=== PATIENT | male | born 1955 | race Caucasian/White ===

== ENCOUNTER 2021-01-01 10:02 | Inpatient (IN) ==
[2021-01-01 10:47] LABS: Basophils % 0.2 %; Eosinophils # 0.1 K/mcL (0.0-0.6); Eosinophils % 0.5 %; Hematocrit 47.6 % (37.5-50.1); Hemoglobin 17.1 g/dL (12.9-16.9); Immature Granulocytes % 0.3 % (0-4); Lymphocytes # 0.7 K/mcL (0.6-4.6); Lymphocytes % 5.7 %; Mean Corpuscular HGB Conc 35.9 g/dL (31.6-35.5); Mean Corpuscular Hemoglobin 33.8 pg (28.0-33.3); Mean Corpuscular Volume 94.1 fL (83.0-100.0); Mean Platelet Volume 9.5 fL (9.4-12.4); Monocytes % 8.6 %; Neutrophils # 10.3 K/mcL (1.6-8.9); Platelet Count 223 K/mcL (140-400); Red Blood Count 5.06 M/mcL (4.19-5.50); Red Cell Distribution Width 11.9 % (11.5-14.5); Segmented Neutrophils % 84.7 %; White Blood Count 12.2 K/mcL (4.3-11.1)
[2021-01-01 11:08] LABS: Alanine Aminotransferase 13 Units/L (7-52); Albumin 4.4 g/dL (3.5-5.7); Albumin/Globulin Ratio 1.5 (1.1-2.2); Alkaline Phosphatase 61 Units/L (34-104); Amylase 32 Units/L (29-103); Aspartate Amino Transferase 17 Units/L (13-39); BUN/Creatinine Ratio 20 (6-26); Bilirubin,Direct 0.5 mg/dL (0.0-0.2); Bilirubin,Indirect 2.7 mg/dL (0.0-1.0); Bilirubin,Total 3.2 mg/dL (0.3-1.0); Blood Urea Nitrogen 19 mg/dL (8-23); Calcium 10.2 mg/dL (8.6-10.3); Carbon Dioxide 28 mEq/L (23-29); Chloride 92 mEq/L (98-107); Globulin 2.9 g/dL (2.4-3.5); Glucose 116 mg/dL (70-105); Lipase 12 Units/L (11-82); Osmolality,Calculated 275 (280-300); Potassium 3.6 mEq/L (3.5-5.1); Sodium 131 mEq/L (136-145); Total Protein 7.3 g/dL (6.4-8.9); eGFR For African Americans > 60 (> 60); eGFR For Non-African Americans > 60 (> 60)
[2021-01-01] MEDS ORDERED: Ringers Solution, Lactated 1,000 ML IVC ONE (11:12)
[2021-01-01] MEDS ORDERED: Benzocaine 20% 12 APPL GEL..GRAM. MM ONE ×2 (11:51→18:14)
[2021-01-01] MEDS ORDERED: *HR* LORazepam 2 MG/ML VIAL IVP ONE (11:52)
[2021-01-01] MEDS ORDERED: Ondansetron 4 MG/2 ML VIAL IVP PRN ×2 (12:33→18:14)
[2021-01-01] MEDS ORDERED: Naloxone 0.4 MG/ML INJ IVP PRN ×2 (12:33→18:14)
[2021-01-01] MEDS ORDERED: 0.9 % Sodium Chloride 2,000 ML IVC SCH ×2 (12:45→18:14)
[2021-01-01] MEDS ORDERED: D5% in Water 1,000 ML IVC PRN ×2 (12:57→18:14)
[2021-01-01] MEDS ORDERED: Dextrose Gel 15 GM/37.5 ML TUBE PO PRN ×4 (12:57→18:14)
[2021-01-01] MEDS ORDERED: *HR* Dextrose 50 % in Water (Syg) 50 ML SYRINGE IVP PRN ×2 (12:57→18:14)
[2021-01-01] MEDS ORDERED: Lidocaine -MPF 2% 5 ML VIAL ONE (15:36)
[2021-01-01] MEDS ORDERED: Ondansetron 4 MG/2 ML VIAL ONE (15:36)
[2021-01-01] MEDS ORDERED: *HR* Propofol 200 MG/20 ML VIAL IVP ONE (15:36)
[2021-01-01] MEDS ORDERED: *HR* FentaNYL (PF) 100 MCG/2 ML VIAL ONE (15:36)
[2021-01-01] MEDS ORDERED: *HR* Rocuronium Bromide 50 MG/5 ML VIAL ONE (15:36)
[2021-01-01] MEDS ORDERED: *HR* Midazolam HCl 2 MG/2 ML VIAL ONE (15:36)
[2021-01-01] MEDS ORDERED: Lidocaine HCL 4 ML Topical Solution (Laryng-O-Jet Kit Sterile Pak) TP ONE (15:37)
[2021-01-01] MEDS ORDERED: *HR* Succinylcholine 200 MG/10 ML VIAL IVP ONE (15:43)
[2021-01-01] MEDS ORDERED: Albumin Human 5% 25.0 GM/500 ML IV.SOLN ONE (15:48)
[2021-01-01] MEDS ORDERED: CefOXitin 2,000 MG VIAL ONE (15:49)
[2021-01-01] MEDS ORDERED: CefOXitin 1,000 MG VIAL ONE (15:51)
[2021-01-01] MEDS ORDERED: MetroNIDAZOLE 500 MG/100 ML 500 MG/100 ML BAG IVPB SCH (16:00)
[2021-01-01] MEDS ORDERED: *HR* HYDROmorphone PF 0.5 MG/0.5 ML SYRINGE IVP PRN ×2 (16:13→18:14)
[2021-01-01] MEDS ORDERED: *HR* FentaNYL (PF) 100 MCG/2 ML VIAL IVP PRN ×2 (16:13→18:14)
[2021-01-01 16:42] LABS: INR 1.2; Prothrombin Time 13.2 Seconds (9.4-12.1)
[2021-01-01 16:43] LABS: Phosphorous 3.2 mg/dL (2.7-4.5)
[2021-01-01 16:44] LABS: Activated Partial Thrombo Time 28.3 Seconds (26.0-36.0)
[2021-01-01 16:45] LABS: Troponin I < 0.03 ng/mL (< 0.04)
[2021-01-01 17:00] LABS: Estimated Average Glucose 91 mg/dl; Hemoglobin A1C 4.8 %
[2021-01-01] MEDS ORDERED: Ketorolac 30 MG/ML VIAL ONE (17:03)
[2021-01-01] MEDS ORDERED: Sugammadex Sodium 200 MG/2 ML VIAL IV ONE (17:04)
[2021-01-01] MEDS ORDERED: *HR* HYDROMORPHONE 2 MG/ML VIAL ONE (17:04)
[2021-01-01] MEDS ORDERED: *HR* Labetalol 20 MG/4 ML SYRINGE IVP ONE (17:28)
[2021-01-01] MEDS ORDERED: Insulin LISPRO 300 UNITS/3 ML VIAL SUBQ SCH (18:00)
[2021-01-01] MEDS: 0.9 % Sodium Chloride 1,000 ML IVC SCH (22:34)
[2021-01-02] MEDS: Insulin LISPRO 300 UNITS/3 ML VIAL SUBQ SCH ×2 (00:49→05:51)
[2021-01-02] MEDS: MetroNIDAZOLE 500 MG/100 ML 500 MG/100 ML BAG IVPB SCH ×3 (00:50→15:54)
[2021-01-02 03:28] LABS: Basophils % 0.1 %; Hematocrit 40.4 % (37.5-50.1); Immature Granulocytes % 0.9 % (0-4); Lymphocytes # 0.4 K/mcL (0.6-4.6); Lymphocytes % 4.2 %; Mean Corpuscular HGB Conc 35.6 g/dL (31.6-35.5); Mean Corpuscular Hemoglobin 33.6 pg (28.0-33.3); Mean Corpuscular Volume 94.2 fL (83.0-100.0); Mean Platelet Volume 9.9 fL (9.4-12.4); Monocytes # 0.5 K/mcL (0.0-1.3); Monocytes % 6.2 %; Neutrophils # 7.5 K/mcL (1.6-8.9); Platelet Count 190 K/mcL (140-400); Red Blood Count 4.29 M/mcL (4.19-5.50); Red Cell Distribution Width 11.9 % (11.5-14.5); Segmented Neutrophils % 88.6 %; White Blood Count 8.5 K/mcL (4.3-11.1)
[2021-01-02 03:32] LABS: Hemoglobin 14.4 g/dL (12.9-16.9)
[2021-01-02 04:14] LABS: Alanine Aminotransferase 10 Units/L (7-52); Albumin 3.6 g/dL (3.5-5.7); Albumin/Globulin Ratio 1.8 (1.1-2.2); Alkaline Phosphatase 43 Units/L (34-104); Aspartate Amino Transferase 15 Units/L (13-39); BUN/Creatinine Ratio 24 (6-26); Bilirubin,Total 1.9 mg/dL (0.3-1.0); Blood Urea Nitrogen 21 mg/dL (8-23); Calcium 8.7 mg/dL (8.6-10.3); Carbon Dioxide 29 mEq/L (23-29); Chloride 96 mEq/L (98-107); Cholesterol 81 mg/dL (< 200); Glucose 125 mg/dL (70-105); HDL Cholesterol 40 mg/dL (40-59); LDL Cholesterol,Calculated 33 mg/dL (< 100); Osmolality,Calculated 282 (280-300); Potassium 3.6 mEq/L (3.5-5.1); Sodium 134 mEq/L (136-145); Total Protein 5.6 g/dL (6.4-8.9); Triglycerides 42 mg/dL (< 150); eGFR For African Americans > 60 (> 60); eGFR For Non-African Americans > 60 (> 60)
[2021-01-02] MEDS: *HR* Heparin 5,000 UNIT/ML VIAL SQ SCH ×2 (05:38→17:38)
[2021-01-02] MEDS ORDERED: *HR* Heparin 5,000 UNIT/ML VIAL SQ SCH (06:00)
[2021-01-02] MEDS ORDERED: Pantoprazole 40 MG VIAL IVP SCH ×2 (09:00)
[2021-01-02] MEDS ORDERED: *HR* OxyCODONE Immed Rel 5 MG TABLET PO PRN (10:07)
[2021-01-02] MEDS: 0.9 % Sodium Chloride 1,000 ML IVC SCH (12:54)
[2021-01-02] MEDS ORDERED: Chloraseptic Spray 177 ML BOTTLE MM PRN (14:53)
[2021-01-02] MEDS: Morphine Sulfate 2 MG/ML SYRINGE IVP PRN ×2 (15:53→23:43)
[2021-01-02] MEDS: Pantoprazole 40 MG VIAL IVP SCH (17:38)
[2021-01-03] MEDS: MetroNIDAZOLE 500 MG/100 ML 500 MG/100 ML BAG IVPB SCH ×3 (00:02→16:40)
[2021-01-03 02:07] LABS: Hematocrit 40.7 % (37.5-50.1); Hemoglobin 14.3 g/dL (12.9-16.9); Mean Corpuscular HGB Conc 35.1 g/dL (31.6-35.5); Mean Corpuscular Hemoglobin 33.1 pg (28.0-33.3); Mean Corpuscular Volume 94.2 fL (83.0-100.0); Mean Platelet Volume 9.8 fL (9.4-12.4); Platelet Count 180 K/mcL (140-400); Red Blood Count 4.32 M/mcL (4.19-5.50); Red Cell Distribution Width 11.8 % (11.5-14.5); White Blood Count 7.2 K/mcL (4.3-11.1)
[2021-01-03 02:19] LABS: BUN/Creatinine Ratio 23 (6-26); Blood Urea Nitrogen 19 mg/dL (8-23); Calcium 8.3 mg/dL (8.6-10.3); Carbon Dioxide 28 mEq/L (23-29); Chloride 100 mEq/L (98-107); Glucose 95 mg/dL (70-105); Osmolality,Calculated 282 (280-300); Potassium 3.1 mEq/L (3.5-5.1); Sodium 135 mEq/L (136-145); eGFR For African Americans > 60 (> 60); eGFR For Non-African Americans > 60 (> 60)
[2021-01-03] MEDS: 0.9 % Sodium Chloride 1,000 ML IVC SCH ×2 (05:29→05:30)
[2021-01-03] MEDS: *HR* Heparin 5,000 UNIT/ML VIAL SQ SCH ×2 (05:32→17:48)
[2021-01-03] MEDS: Pantoprazole 40 MG VIAL IVP SCH ×2 (05:33→17:48)
[2021-01-03] MEDS ORDERED: Potassium Chloride 40 MEQ, Lidocaine 1% 2 ML in 0.9 % Sodium Chloride 500 ML IVPB ONE (07:24)
[2021-01-03] MEDS ORDERED: Fluticasone Propionate Nasal 50 MCG/SPRAY BOTTLE NS PRN (08:10)
[2021-01-03] MEDS: Acetaminophen IV 1,000 MG/100 ML BAG IVPB SCH ×3 (09:00→17:47)
[2021-01-03] MEDS: Aspirin 325 MG TABLET PO SCH (09:16)
[2021-01-03] MEDS: hydroCHLOROthiazide 25 MG TABLET PO SCH (09:16)
[2021-01-03 10:19] LABS: Bacteria,Urine Few per hpf (None-Few); Bilirubin,Urine Negative (Negative); Blood,Urine Trace (Negative); Clarity,Urine Clear (Clear); Color,Urine Yellow (Yellow); Glucose,Urine (UA) Normal (Normal); Ketones,Urine 40 mg/dL (Negative); Leukocyte Esterase,Urine Negative (Negative); Mucus,Urine Few per lpf (None-Few); Nitrite,Urine Negative (Negative); Protein,Urine Trace mg/dL (Neg-Trace); Specific Gravity,Urine 1.024 (1.010-1.025); Squamous Epithelial Cell,Urine Few per hpf (None-Few); Urobilinogen,Urine Normal (Normal); WBC,Urine 0-3 per hpf (0-3)
[2021-01-04] MEDS: Acetaminophen IV 1,000 MG/100 ML BAG IVPB SCH (00:27)
[2021-01-04] MEDS: MetroNIDAZOLE 500 MG/100 ML 500 MG/100 ML BAG IVPB SCH ×3 (00:52→15:55)
[2021-01-04] MEDS: Pantoprazole 40 MG VIAL IVP SCH ×2 (05:59→17:11)
[2021-01-04] MEDS: *HR* Heparin 5,000 UNIT/ML VIAL SQ SCH ×2 (05:59→17:11)
[2021-01-04 07:02] LABS: Hematocrit 40.6 % (37.5-50.1); Hemoglobin 14.7 g/dL (12.9-16.9); Mean Corpuscular HGB Conc 36.2 g/dL (31.6-35.5); Mean Corpuscular Hemoglobin 33.7 pg (28.0-33.3); Mean Corpuscular Volume 93.1 fL (83.0-100.0); Mean Platelet Volume 9.7 fL (9.4-12.4); Platelet Count 201 K/mcL (140-400); Red Blood Count 4.36 M/mcL (4.19-5.50); Red Cell Distribution Width 11.4 % (11.5-14.5); White Blood Count 5.5 K/mcL (4.3-11.1)
[2021-01-04 07:20] LABS: BUN/Creatinine Ratio 16 (6-26); Blood Urea Nitrogen 13 mg/dL (8-23); Calcium 8.9 mg/dL (8.6-10.3); Carbon Dioxide 26 mEq/L (23-29); Chloride 101 mEq/L (98-107); Glucose 93 mg/dL (70-105); Magnesium 2.1 mg/dL (1.6-2.6); Osmolality,Calculated 276 (280-300); Potassium 3.5 mEq/L (3.5-5.1); Sodium 133 mEq/L (136-145); eGFR For African Americans > 60 (> 60); eGFR For Non-African Americans > 60 (> 60)
[2021-01-04] MEDS: Aspirin 325 MG TABLET PO SCH (08:58)
[2021-01-04] MEDS: hydroCHLOROthiazide 25 MG TABLET PO SCH (09:03)
[2021-01-05] MEDS: MetroNIDAZOLE 500 MG/100 ML 500 MG/100 ML BAG IVPB SCH ×2 (01:21→07:45)
[2021-01-05] MEDS: *HR* Heparin 5,000 UNIT/ML VIAL SQ SCH ×2 (05:31→17:31)
[2021-01-05] MEDS: Pantoprazole 40 MG VIAL IVP SCH ×2 (05:32→17:32)
[2021-01-05] MEDS: Aspirin 325 MG TABLET PO SCH (07:44)
[2021-01-05] MEDS: hydroCHLOROthiazide 25 MG TABLET PO SCH (07:45)
[2021-01-05] MEDS: metroNIDAZOLE 500 MG TABLET PO SCH ×2 (15:33→20:08)
[2021-01-06] MEDS: Pantoprazole 40 MG VIAL IVP SCH (05:43)
[2021-01-06] MEDS: *HR* Heparin 5,000 UNIT/ML VIAL SQ SCH (05:44)
[2021-01-06] MEDS: Aspirin 325 MG TABLET PO SCH (08:14)
[2021-01-06] MEDS: hydroCHLOROthiazide 25 MG TABLET PO SCH (08:15)
[2021-01-06] MEDS: metroNIDAZOLE 500 MG TABLET PO SCH (08:15)
[2021-01-06] MEDS ORDERED: polyethylene glycoL 3350 17 GM POWD.PACK PO SCH (09:15)
[2021-01-06 09:58] VITALS: BP 129/80; PULSE 81; TEMP 98; O2SAT 94
== END 2021-01-06 11:10 | disposition home or self-care (01) | DRG 336 ==
LOC: 3ANU 10:02 → EMEROOARM 10:02 → SUATTDRO 12:38 → 3ANU 14:04 → SUATTDRO 01-02 12:24
PROVIDERS: ADMIT General Practice; ATTEND Internal Medicine